=== PATIENT | male | born 1975 | race Caucasian/White ===

== ENCOUNTER 2017-10-22 19:44 | Emergency (ER) | payer OTHER ==
[2017-10-22] MEDS: IBUPROFEN 600 MG TAB PO (20:18)
[2017-10-22] MEDS: HYDROCODONE/APAP (5/325) TAB PO (20:19)
== END 2017-10-22 22:38 | disposition home or self-care (01) ==
LOC: FTE 22:38
DX: S93.602A Unspecified sprain of left foot, initial encounter (principal); X58.XXXA Exposure to other specified factors, initial encounter; Y92.9 Unspecified place or not applicable
CPT/HCPCS: 73630; 73630-LT; 99283-25

== ENCOUNTER 2019-02-25 10:28 | Emergency (ER) | payer OTHER ==
[2019-02-25] MEDS: KETOROLAC 60 MG INJ IM (13:05)
[2019-02-25] MEDS: OXYCODONE/ACETAMINOPHEN (10/325) TAB PO (13:15)
== END 2019-02-25 15:09 | disposition home or self-care (01) ==
LOC: FTE 10:28
DX: S83.91XA Sprain of unspecified site of right knee, initial encounter (principal); V23.4XXA Motorcycle driver injured in collision with car, pick-up truck or van in traffic accident, initial encounter
CPT/HCPCS: 29505; 73502; 73510; 73550; 73552; 73562; 73590; 73610-RT; 73630; 96372; 99284-25